=== PATIENT | male | born 1960 | race Caucasian/White ===

== ENCOUNTER 2018-09-04 07:28 | Observation (INO) | payer BC ==
[2018-09-04 07:33] VITALS: BMI 35.6
--- NOTE | 2018-09-04 07:38 | PDOC ---
History of Present Illness - General Chief Complaint: Pain Stated Complaint: epigatsric buring Time Seen by Provider: 09/04/18 07:31 History Source: Patient Exam Limitations: No Limitations - History of Present Illness Initial Comments: 57 yo M history HTN (well-controlled), recent treatment with prednisone and abx for pleurisy presents with epigastric burning in a band-like distribution, radiating to back. He had it all night, kept him awake from sleep. Denies SOB, leg swelling. States that his abdomen feels distended, bloated. No prior similar symptoms. Finished the steroids about 4 days ago, did not have any side effects while taking them. He states that his throat feels raspy, irritated. Past History - Past Medical History Allergies/Adverse Reactions: Allergies Allergy/AdvReac Type Severity Reaction Status Date / Time No Known Allergies Allergy Verified 09/04/18 07:30 Home Medications: Ambulatory Orders Budesonide/Formeterol Fumarate [SYMBICORT 160/4.5mcg -] 1 inh PO BID 09/04/18 Losartan/Hydrochlorothiazide [Losartan-Hctz 50-12.5 mg Tab] 1 each PO DAILY Montelukast Sodium [Singulair] 10 mg PO HS 09/04/18 Asthma: Yes COPD: No HTN: Yes Review of Systems - Review of Systems Able to Perform ROS?: Yes Comments:: GENERAL/CONSTITUTIONAL: No fever or chills. No weakness. HEAD, EYES, EARS, NOSE AND THROAT: No change in vision. No ear pain or discharge. No sore throat. CARDIOVASCULAR: No chest pain or shortness of breath. RESPIRATORY: No cough, wheezing, or hemoptysis. GASTROINTESTINAL: No nausea, vomiting, diarrhea or constipation. +Epigastric burning. GENITOURINARY: No dysuria, frequency, or change in urination. MUSCULOSKELETAL: No joint or muscle swelling or pain. No neck or back pain. SKIN: No rash. NEUROLOGIC: No headache, vertigo, loss of consciousness, or change in strength/ sensation. ENDOCRINE: No increased thirst. No abnormal weight change. HEMATOLOGIC/LYMPHATIC: No anemia, easy bleeding, or history of blood clots. ALLERGIC/IMMUNOLOGIC: No hives or skin allergy. *Physical Exam - Physical Exam Comments: GENERAL: Awake, alert, and fully oriented, in no acute distress. Obese. HEAD: No signs of trauma EYES: PERRLA, EOMI, sclera anicteric, conjunctiva clear ENT: Auricles normal inspection, hearing grossly normal, nares patent, oropharynx clear without exudates. Moist mucosa NECK: Normal ROM, supple, no lymphadenopathy, JVD, or masses LUNGS: Breath sounds equal, clear to auscultation bilaterally. No wheezes, and no crackles HEART: Regular rate and rhythm, normal S1 and S2, no murmurs, rubs or gallops ABDOMEN: Soft, minimal lower abd tenderness, normoactive bowel sounds. No guarding, no rebound. No masses EXTREMITIES: Normal range of motion, no edema. No clubbing or cyanosis. No cords, erythema, or tenderness NEUROLOGICAL: Cranial nerves II through XII grossly intact. Normal speech, normal gait. Motor and sensation intact SKIN: Warm, Dry, normal turgor, no rashes or lesions noted. Heart Score/ECG Review - History History: Slightly suspicious - Electrocardiogram EKG: Normal - Age Age: 45-65 - Risk Factors Risk Factors Heart Score: Yes Hx Hypertension, Yes Hx Obesity Based on the list above the patient has:: 1-2 risk factors - Troponin Troponin: </= normal limit - Score Heart Score - Total: 2 - ECG Impressions Comment:: EKG read 07:36- NSR 82 bpm, no acute ST/T changes ED Treatment Course - LABORATORY CBC & Chemistry Diagram: 09/04/18 08:00 09/04/18 08:00 - RADIOLOGY Chest X-Ray Result: No Infiltrates Medical Decision Making - Medical Decision Making 09/04/18 07:38 DDx includes ACS, pancreatitis, PUD, pna, PE. Will obtain CXR to r/o any thoracic etiology in light of recent treatment for pleurisy. ACS considered unlikely, as the presentation is very atypical, however, will obtain cardiac enzymes. PUD is definitely possible in light of recent steroid use. This would explain the burning and bloating. Pancreatitis is less likely, but will obtain lipase to r/o. PE unlikely given the clinical presentation- very atypical. No respiratory symptoms, no recent leg swelling. There is no rash and the burning is B/L, so shingles is unlikely. If workup is all negative, will consider CT a/ p. 09/04/18 07:56 EKG reviewed with patient, no acute findings. Upon further history, he states he has been on prednisone twice recently, raising concern for PUD. Await labs, then will determine whether to obtain CT or d/w his GI. 09/04/18 08:49 Slight improvement with pepcid. Will give a trial of protonix. 09/04/18 09:54 Improved significantly with protonix. Contacted Dr. Aguila, who will attempt to scope today. Awaiting update. Will send coags and T&S. Patient remains NPO. 09/04/18 10:39 Accepted to hospitalist service on obs, Dr. Ramirez. *DC/Admit/Observation/Transfer Diagnosis at time of Disposition: Epigastric pain - Discharge Dispostion Condition at time of disposition: Stable Decision to Admit order: Yes - Referrals - Patient Instructions - Post Discharge Activity
[2018-09-04] MEDS ORDERED: SODIUM CHLORIDE 1,000 ML IV STA (07:50)
[2018-09-04] MEDS ORDERED: FAMOTIDINE 20 MG/50 ML IVPB 20 MG/50 ML MG IVPB ONE (08:15)
[2018-09-04 08:34] LABS: BASO % 0.7 % (0-2.0)
[2018-09-04 08:38] LABS: ALBUMIN 4.3 g/dl (3.4-5.0); CALCIUM 9.4 mg/dl (8.5-10); CREATININE 1.1 mg/dl (0.55-1.3); POTASSIUM 3.8 mmol/L (3.5-5.1); TOT PROT 6.9 g/dl (6.4-8.2)
[2018-09-04 08:41] LABS: HEMATOCRIT 45.8 % (35.4-49); HEMOGLOBIN 15.8 GM/dl (11.7-16.9); LYMPH % 24.7 % (8-40); MCH 30.3 pg (25.7-33.7); MCHC 34.5 g/dl (32.0-35.9); MEAN PLT VOLUME 10.4 fl (7.5-11.1); MONO % 6.5 % (3.8-10.2); NEUT % 63.1 % (42.8-82.8); PLATELET COUNT 190 K/MM3 (134-434); RDW 11.9 % (11.9-15.9)
[2018-09-04] MEDS ORDERED: PANTOPRAZOLE SODIUM 40 MG VIAL IVPUSH ONE (08:48)
[2018-09-04] MEDS ORDERED: PANTOPRAZOLE SODIUM 40 MG VIAL ONE (08:49)
[2018-09-04 10:15] LABS: INR 1.1 (0.82-1.09); PROTHROMBIN TIME (PATIENT) 12.3 SEC (10.2-13.0)
--- NOTE | 2018-09-04 10:44 | HP ---
CHIEF COMPLAINT: Epigastric pain PCP: Dr. Ki Sellers HISTORY OF PRESENT ILLNESS: 57 year-old male with a PMH significant for HTN, moderate persistent asthma. allergic rhinitis, and WHIT (home CPAP). In mid-June (8 weeks ago) patient developed seasonal allergy symptoms which is his usual. On 07/21/18 he went to see his aquatic centre manager Dr. Tucker with cough, wheezing, SOB, and purulent sputum. He was diagnosed with an acute asthma exacerbation and was prescribed azithro x 5 days, prednisone taper, and told to continue Symbicort and Singulair. Two weeks ago, in early August, patient was seen by aquatic centre manager Dr. Fowler for persistent wheezing, coughing, and purulent sputum. He was put on a course of Ceftin and a short course of prednisone and his symptoms improved. Four days ago patient began experiencing a burning sensation in his abdomen. He describes it as band-like, going around the upper abdomen to the back. It is worse with deep inspiration and with lying down. Nothing makes it better. The burning sensation became much worse last night and he got little sleep. He propped himself up with pillows but has "discomfort" in his back. Patient denies chest pain, palpitations, JACOBS, lower extremity edema. He denies fever, sweats, chills. He had one episode of loose stools yesterday, brown color. No nausea or vomiting. Denies blood in urine or stool. Does not take ASA or NSAIDS on a regular basis. ER course was notable for: (1) Troponin neg x 1 (2) CXR: unremarkable (3) NS x 1L, protonix x 1 Recent Travel: [facility] in March PAST MEDICAL HISTORY: Hypertension Moderate persistent bronchial asthma Allergic rhinitis seasonal WHIT (home CPAP) PAST SURGICAL HISTORY: Myringotomies/tonsillectomy - as child Social History: Smoking: never Alcohol: social Drugs: no Family History: Mother 90 ovarian cancer; father 93 pancreatic cancer ; 1 brother, 1 sister both a&w Allergies No Known Allergies Allergy (Verified 09/04/18 07:30) HOME MEDICATIONS: Home Medications Medication Instructions Recorded Budesonide/Formeterol Fumarate 1 inh PO BID 09/04/18 [SYMBICORT 160/4.5mcg -] Losartan/Hydrochlorothiazide 1 each PO DAILY 09/04/18 [Losartan-Hctz 50-12.5 mg Tab] Montelukast Sodium [Singulair] 10 mg PO HS 09/04/18 REVIEW OF SYSTEMS CONSTITUTIONAL: Absent: fever, chills, diaphoresis, generalized weakness, malaise, loss of appetite, weight change HEENT: Absent: rhinorrhea, nasal congestion, throat pain, throat swelling, difficulty swallowing, mouth swelling, ear pain, eye pain, visual changes CARDIOVASCULAR: Absent: chest pain, syncope, palpitations, irregular heart rate, lightheadedness , peripheral edema RESPIRATORY: +cough, wheezing Absent: shortness of breath, dyspnea with exertion, orthopnea, stridor, hemoptysis GASTROINTESTINAL: +abdominal pain, bloating Absent: nausea, vomiting, diarrhea, constipation, melena, hematochezia GENITOURINARY: Absent: dysuria, frequency, urgency, hesitancy, hematuria, flank pain, genital pain MUSCULOSKELETAL: Absent: myalgia, arthralgia, joint swelling, back pain, neck pain SKIN: Absent: rash, itching, pallor HEMATOLOGIC/IMMUNOLOGIC: Absent: easy bleeding, easy bruising, lymphadenopathy, frequent infections ENDOCRINE: Absent: unexplained weight gain, unexplained weight loss, heat intolerance, cold intolerance NEUROLOGIC: Absent: headache, focal weakness or paresthesias, dizziness, unsteady gait, seizure, mental status changes, bladder or bowel incontinence PSYCHIATRIC: Absent: anxiety, depression, suicidal or homicidal ideation, hallucinations. PHYSICAL EXAMINATION Vital Signs - 24 hr 09/04/18 09/04/18 09/04/18 07:29 10:04 10:07 Temperature 97.8 F 98.4 F Pulse Rate 83 Pulse Rate [ 70 Apical] Respiratory 18 18 Rate Blood Pressure 154/93 Blood Pressure 137/83 [Arm] O2 Sat by Pulse 98 97 Oximetry (%) GENERAL: Awake, alert, and fully oriented. Anxious. HEAD: Normal with no signs of trauma. LUNGS: Poor air movement. Mild inspiratory and expiratory wheezing. No accessory muscle use. HEART: Regular rate and rhythm, normal S1 and S2 ABDOMEN: Soft, nontender, not distended, normoactive bowel sounds, no guarding, no rebound tenderness MUSCULOSKELETAL: Normal range of motion at all joints. No bony deformities or tenderness. No CVA tenderness. UPPER EXTREMITIES: 2+ pulses, warm, well-perfused. No cyanosis. No clubbing. No peripheral edema. LOWER EXTREMITIES: 2+ pulses, warm, well-perfused. No calf tenderness. No peripheral edema. Mild bilateral venous stasis changes. NEUROLOGICAL: Cranial nerves II-XII intact. Normal speech. PSYCHIATRIC: Cooperative. Good eye contact. Appropriate mood and affect. SKIN: Warm, dry, normal turgor Laboratory Results - last 24 hr 09/04/18 09/04/18 09/04/18 08:00 08:00 08:00 WBC 7.0 RBC 5.20 Hgb 15.8 Hct 45.8 MCV 88.0 MCH 30.3 MCHC 34.5 RDW 11.9 Plt Count 190 MPV 10.4 Absolute Neuts (auto) 4.4 Neutrophils % 63.1 Lymphocytes % 24.7 Monocytes % 6.5 Eosinophils % 5.0 H Basophils % 0.7 PT with INR INR Sodium 137 Potassium 3.8 Chloride 103 Carbon Dioxide 24 Anion Gap 10 BUN 23 H Creatinine 1.1 Est GFR (CKD-EPI)AfAm 84.71 Est GFR (CKD-EPI)NonAf 73.09 Random Glucose 113 H Calcium 9.4 Total Bilirubin 1.0 AST 29 ALT 57 Alkaline Phosphatase 46 Creatine Kinase 76 Troponin I < 0.03 Total Protein 6.9 Albumin 4.3 Lipase 254 09/04/18 09:59 WBC RBC Hgb Hct MCV MCH MCHC RDW Plt Count MPV Absolute Neuts (auto) Neutrophils % Lymphocytes % Monocytes % Eosinophils % Basophils % PT with INR 12.3 INR 1.10 Sodium Potassium Chloride Carbon Dioxide Anion Gap BUN Creatinine Est GFR (CKD-EPI)AfAm Est GFR (CKD-EPI)NonAf Random Glucose Calcium Total Bilirubin AST ALT Alkaline Phosphatase Creatine Kinase Troponin I Total Protein Albumin Lipase ASSESSMENT/PLAN 57 year-old male with a PMH significant for HTN, moderate persistent asthma. allergic rhinitis, and WHIT (home CPAP). Placed on observation for abdominal pain. Epigastric pain --ECG reviewed, no sign of acute ischemic event --troponin neg x 2, one pending --CXR unremarkable --CTA chest: negative for PE; no acute findings --Echo: small pericardial effusion --seen and evaluated by Dr. Polk: considered pericarditis but no ECG changes and esr and crp both wnl; do not start ASA or other NSAID --repeat ECG at 11:00pm and in am --telemetry monitoring Gastritis Duodenitis --EGD done today by Dr. Aguila: mild gastritis, duodenitis --protonix PO BID --ranitidine PO BID for shorter-acting relief Hypertension --BP is well-controlled, baseline 130s/80s --continue HCTZ/Losartan Asthma exacerbation --mild wheezing --duonebs --continue home symbicort, singulair WHIT --CPAP at night, will use machine from home FEN Fluids: NS @ 50mL/hr Electrolytes: replete as indicated Nutrition: low sodium DVT prophylaxis: oob, ambulation, expected discharge in am. Full code. Visit type - Emergency Visit Emergency Visit: Yes ED Registration Date: 09/04/18 Care time: The patient presented to the Emergency Department on the above date and was hospitalized for further evaluation of their emergent condition. - New Patient This patient is new to me today: Yes Date on this admission: 09/04/18 - Critical Care Critical Care patient: No
[2018-09-04] MEDS ORDERED: SODIUM CHLORIDE 1,000 ML IV SCH ×2 (11:00→18:06)
[2018-09-04] MEDS ORDERED: SODIUM CHLORIDE 500 ML IV STA (11:00)
[2018-09-04] MEDS ORDERED: LIDOCAINE HCL/PF 2% SDV 5ML VIAL ONE (11:26)
[2018-09-04] MEDS ORDERED: PROPOFOL 20 ML ONE ×2 (11:26)
[2018-09-04] MEDS ORDERED: EPINEPHrine 1:10,000 (P-F SYR) 1 MG/10 ML DISP.SYRIN ONE (11:26)
[2018-09-04] MEDS ORDERED: ONDANSETRON 4 MG/2 ML VIAL ONE (11:57)
[2018-09-04] MEDS ORDERED: ALBUTEROL SO4 2.5/IPRATROPIUM 0.5 INH SOL 3 ML VIAL.NEB. NEB PRN (14:09)
[2018-09-04 15:19] LABS: CHOLESTEROL 160 mg/dl (50-200); HDL CHOLESTEROL 41 mg/dl (40-60); LDL CHOLESTEROL (ONLY DFH) 107 mg/dl (5-100); TRIGLYCERIDES 62 mg/dl (0-150)
--- NOTE | 2018-09-04 15:56 | CON.CARD ---
Consult Consult Specialty:: Cardiology Referred by:: Nile Adams Reason for Consultation:: Epigastric and chest pain - History of Present Illness Chief Complaint: Epigastric pain radiating back History of Present Illness: 57 M with HTN, asthma and WHIT presents for evaluation of one day of epigastric and abdominal pain radiating to back along with epigastric burning worse when laying down, improved with sitting up. Denies chest pain, SOB, palpitations, PND or orthopnea. No cough, fevers or chills. HPI began several weeks ago when he began having dry cough and mild pleurisy symptoms. Was seen by Pulmonary and given and antibiotic and short course of steroids. This was preceded by a sore throat for which he saw ENT, had a scope which was unremarkable. No recent prolonged air or car travel. He is sedentary; denies exertional CP, SOB, dizziness. Had EGD done earlier today showing nonspecific gastritis and inflammation. - History Source History Provided By: Patient Limitations to Obtaining History: No Limitations - Past Medical History [employer]: No: Alzheimer's, CVA, Dementia, Migraine, Multiple Sclerosis, Peripheral Neuropathy, Parkinson's, Seizure, Syncope, TIA, Vertigo, Other Cardio/Vascular: Yes: HTN Pulmonary: Yes: Asthma, Sleep Apnea Gastrointestinal: No: Ascites, Cancer, Constipation, Crohn's Disease, Diverticulitis, Diverticulosis, Esophageal Varices, Gastritis, GERD, GI Bleed, Hemorrhoids, Hiatal Hernia, Inflamatory Bowel Disease, Irritable Bowel Disease, Pancreatitis, Peptic Ulcer Disease, Ulcerative Colitis, Other Hepatobiliary: No: Cirrhosis, Cholelithiasis, Cholecystitis, Choledocholithiasis , Hepatitis A, Hepatitis B, Hepatitis C, Other Renal/: No: Renal Failure, Renal Inusuff, BPH, Cancer, Hematuria, Hemodialysis , Neurogenic Bladder, Renal Calculi, UTI, Other Heme/Onc: No: Anemia, B12 Deficiency, Bleeding Disorder, Cancer, Current Chemotherapy, Current Radiation Therapy, Hemochromatosis, Hypercoaguable State, Myeloproliferative Synd, Sickle Cell Disease, Sickle Cell Trait, Thrombocytopenia, Other Infectious Disease: No: AIDS, C-Diff, Herpes Zoster, HIV, MRSA, STD's, Tuberculosis, VREF, Other Psych: No: Addictions, Anxiety, Bipolar, Depression, Panic, Psychosis, Schizophrenia, Other Musculoskeletal: No: Bursitis, Chronic low back pain, Hemiparesis, Hemiplegia, Osteoarthritis, Paraplegia, Other Rheumatology: No: Fibromyalgia, Gout, Lupus, Rheumatoid Arthritis, Sarcoidosis, Vasculitis, Other ENT: Yes: Allergic Rhinitis Endocrine: No: Michael's Disease, Kel's Disease, Diabetes Insipidus, Diabetes Mellitus, Hyperparathyroidism, Hyperthyroidism, Hypothyroidism, Osteopenia, SIADH, Other Dermatology: No: Basal Cell, Cellulitis, Eczema, Melanoma, Psoriasis, Squamous Cell, Other - Alcohol/Substance Use Hx Alcohol Use: No (socially) - Smoking History Smoking history: Never smoked - Social History Usual Living Arrangement: With Spouse History of Recent Travel: No Home Medications - Allergies Allergies/Adverse Reactions: Allergies Allergy/AdvReac Type Severity Reaction Status Date / Time No Known Allergies Allergy Verified 09/04/18 07:30 - Home Medications Home Medications: Ambulatory Orders Budesonide/Formeterol Fumarate [SYMBICORT 160/4.5mcg -] 1 inh PO BID 09/04/18 Losartan/Hydrochlorothiazide [Losartan-Hctz 50-12.5 mg Tab] 1 each PO DAILY Montelukast Sodium [Singulair] 10 mg PO HS 09/04/18 Family Disease History - Family Disease History Family Disease History: CA: Father Review of Systems Findings/Remarks: see HPI - Review of Systems Constitutional: reports: No Symptoms Eyes: reports: No Symptoms HENT: reports: No Symptoms Neck: reports: No Symptoms Cardiovascular: reports: No Symptoms Respiratory: reports: No Symptoms Gastrointestinal: reports: Abdominal Pain, Other (abdominal and epigastric pain radiating to back, worse with laying flat.) Breasts: denies: No Symptoms Reported, See HPI, Breast Implants, Discharge from Nipple, Lumps, Pain, Skin Changes, Other Musculoskeletal: denies: No Symptoms, Back Pain, Crepitus, Decreased ROM, Extremity Pain, Joint Pain, Joint Swelling, Muscle Pain, Muscle Cramps, Muscle Weakness, Other Integumentary: denies: No Symptoms, Blister, Bruising, Change in Color, Eczema, Erythema, Incision, Lesions, Lump, Pallor, Pruritis, Rash, Wound, Other Neurological: denies: No Symptoms, Change in LOC, Change in Speech, Confusion, Dizziness, Headache, Incoordination, Numbness, Parasthesia, Pre-Existing Deficit , Seizure, Syncope, Tremors, Unsteady Gait, Weakness, Other Endocrine: denies: No Symptoms, Excessive Sweating, Flushing, Increased Hunger, Increased Thirst, Intolerance to Cold, Intolerance to Heat, Unexplained Weight Gain, Unexplained Weight Loss, Other Hematology/Lymphatic: denies: No Symptoms, Easily Bruised, Excessive Bleeding, Swollen Glands, Other Psychiatric: denies: No Symptoms, Altered Sleep Pattern, Anxiety, Depression, Hallucinations, Panic, Paranoia, Suicidal, Other - Risk Factors Known Risk Factors: Yes: Hypertension Vital Signs: Vital Signs Temperature 98.7 F 09/04/18 13:00 Pulse Rate 66 09/04/18 13:00 Respiratory Rate 13 09/04/18 13:00 Blood Pressure 108/61 09/04/18 13:00 O2 Sat by Pulse Oximetry (%) 97 09/04/18 12:40 Constitutional: Yes: No Distress, Calm Eyes: Yes: Conjunctiva Clear HENT: Yes: Atraumatic, Normocephalic Neck: Yes: Supple Respiratory: Yes: CTA Bilaterally (no rales or wheezing.), Other (diminished breath sounds) Gastrointestinal: Yes: Normal Bowel Sounds, Soft (no rebound, no guarding. No RUQ tenderness. Negative Bowers's sign,), Abdomen, Obese Cardiovascular: Yes: Regular Rate and Rhythm JVD: No Carotid Bruit: No PMI: Non-Displaced Heart Sounds: Yes: S1, S2 (RRR, no M/R/G.) Edema: No Peripheral Pulses WNL: Yes Peripheral Pulses: 2+ Left Carotid, 2+ Right Carotid, 2+ Left Doralis Pedis, 2+ Right Dorsalis Pedis Neurological: Yes: WNL ...Motor Strength: WNL Psychiatric: Yes: WNL - Other Data Labs, Other Data: CBC, BMP 09/04/18 08:00 09/04/18 08:00 INR, PTT INR 1.10 (0.82-1.09) 09/04/18 09:59 Troponin, BNP 09/04/18 08:00 Troponin I < 0.03 Troponin, BNP 09/04/18 08:00 Troponin I < 0.03 Laboratory Tests 09/04/18 09/04/18 09/04/18 07:40 08:00 08:00 Lactic Acid Calcium 9.4 Total Bilirubin 1.0 AST 29 ALT 57 Alkaline Phosphatase 46 Creatine Kinase 76 Troponin I < 0.03 Total Protein 6.9 Albumin 4.3 Triglycerides 62 Cholesterol 160 Total LDL Cholesterol 107 H HDL Cholesterol 41 Lipase 254 TSH 09/04/18 09/04/18 13:35 13:35 Lactic Acid 0.8 Calcium Total Bilirubin AST ALT Alkaline Phosphatase Creatine Kinase Troponin I Total Protein Albumin Triglycerides Cholesterol Total LDL Cholesterol HDL Cholesterol Lipase TSH 1.41 D NSR 82bpm/ No acute ST changes Echo: Pending Imaging - Results Chest X-ray: Image Reviewed (No infiltrates or effusions.) Cat Scan: Pending (CT A/P with PO and IV contrast) EKG: Image Reviewed Assessment/Plan IMP: 1. Epigastric pain with posterior radiation, positional worsening. 2. Gastritis 3. Chronic well controlled HTN 4. Chronic asthma 5. WHIT, treated Etiology of current symptoms not entirely clear at moment. Differential includes : Aortic pathology/ right sided colitis/ abdominal mass/ other inflammatory post viral syndromes such as pleurisy or pericarditis (less likely as ECG not suggestive). Doubt coronary ischemia as ECG normal and symptoms very atypical. Normal Lipase makes acute pancreatitis or biliary colic unlikely. Nl LFTs, relatively benign abdomen makes acute cholecystitis also unlikely. REC: 1. F/u CT A/P 2. Continue telemetry; serial cardiac enzymes and ECGs. 3. Continue home BP meds. 4. PPI for reflux/gastritis. 5. Echo today to r/o pericardial disease, assess EF. 6. Further cardiac work pending above.
--- NOTE | 2018-09-04 16:50 | CON.PULM ---
Consult Consult Specialty:: PULMONARY Referred by:: TANIA Reason for Consultation:: ABD PAIN - History of Present Illness Chief Complaint: ABD PAIN RADIATING TO BACK History of Present Illness: 57 yo M history HTN (well-controlled), recent treatment with prednisone and abx for asthmatic bronchitis presents with epigastric burning in a band-like distribution, radiating to back. He had it all night, kept him awake from sleep. Denies SOB, leg swelling. States that his abdomen feels distended, bloated. No prior similar symptoms. Finished the steroids about 4 days ago, did not have any side effects while taking them. He states that his throat feels raspy, irritated. - History Source History Provided By: Patient, Family Member, Medical Record Limitations to Obtaining History: No Limitations - Past Medical History [employer]: No: Alzheimer's, CVA, Dementia, Migraine, Multiple Sclerosis, Peripheral Neuropathy, Parkinson's, Seizure, Syncope, TIA, Vertigo, Other Cardio/Vascular: Yes: HTN. No: AFIB Pulmonary: Yes: Asthma, Sleep Apnea Gastrointestinal: No: Ascites, Cancer, Constipation, Crohn's Disease, Diverticulitis, Diverticulosis, Esophageal Varices, Gastritis, GERD, GI Bleed, Hemorrhoids, Hiatal Hernia, Inflamatory Bowel Disease, Irritable Bowel Disease, Pancreatitis, Peptic Ulcer Disease, Ulcerative Colitis, Other Hepatobiliary: No: Cirrhosis, Cholelithiasis, Cholecystitis, Choledocholithiasis , Hepatitis A, Hepatitis B, Hepatitis C, Other Renal/: No: Renal Failure, Renal Inusuff, BPH, Cancer, Hematuria, Hemodialysis , Neurogenic Bladder, Renal Calculi, UTI, Other Heme/Onc: No: Anemia Infectious Disease: No: AIDS, C-Diff, Herpes Zoster, HIV, MRSA, STD's, Tuberculosis, VREF, Other Psych: No: Addictions, Anxiety, Bipolar, Depression, Panic, Psychosis, Schizophrenia, Other Musculoskeletal: No: Bursitis, Chronic low back pain, Hemiparesis, Hemiplegia, Osteoarthritis, Paraplegia, Other Rheumatology: No: Fibromyalgia, Gout, Lupus, Rheumatoid Arthritis, Sarcoidosis, Vasculitis, Other ENT: Yes: Allergic Rhinitis Endocrine: No: Michael's Disease, Otoe's Disease, Diabetes Insipidus, Diabetes Mellitus, Hyperparathyroidism, Hyperthyroidism, Hypothyroidism, Osteopenia, SIADH, Other Dermatology: No: Basal Cell, Cellulitis, Eczema, Melanoma, Psoriasis, Squamous Cell, Other - Past Surgical History Past Surgical History: Yes: Tonsillectomy - Alcohol/Substance Use Hx Alcohol Use: No (social) History of Substance Use: reports: None - Smoking History Smoking history: Never smoked Have you smoked in the past 12 months: No - Social History Usual Living Arrangement: With Spouse ADL: Independent Place of : [facility] History of Recent Travel: No Home Medications - Allergies Allergies/Adverse Reactions: Allergies Allergy/AdvReac Type Severity Reaction Status Date / Time No Known Allergies Allergy Verified 09/04/18 07:30 - Home Medications Home Medications: Ambulatory Orders Budesonide/Formeterol Fumarate [SYMBICORT 160/4.5mcg -] 1 inh PO BID 09/04/18 Losartan/Hydrochlorothiazide [Losartan-Hctz 50-12.5 mg Tab] 1 each PO DAILY Montelukast Sodium [Singulair] 10 mg PO HS 09/04/18 Family Disease History - Family Disease History Family Disease History: [place]: Father Review of Systems - Review of Systems Constitutional: denies: Fever Eyes: denies: Blurred Vision HENT: denies: Hearing Loss Neck: denies: Decreased ROM Cardiovascular: denies: Chest Pain Respiratory: reports: Cough, Exercise Intolerance, Snoring, SOB, SOB on Exertion. denies: Hemoptysis, PND, Wheezing Gastrointestinal: reports: Abdominal Pain, Bloating. denies: Constipation, Diarrhea Genitourinary: denies: Discharge Breasts: reports: No Symptoms Reported Musculoskeletal: reports: No Symptoms Integumentary: reports: No Symptoms Neurological: reports: No Symptoms Physical Exam Vital Sings: Vital Signs Temperature 98.7 F 09/04/18 13:00 Pulse Rate 66 09/04/18 13:00 Respiratory Rate 13 09/04/18 13:00 Blood Pressure 108/61 09/04/18 13:00 O2 Sat by Pulse Oximetry (%) 97 09/04/18 12:40 Constitutional: Yes: Well Nourished Eyes: Yes: Conjunctiva Clear HENT: Yes: Atraumatic Neck: Yes: Supple Cardiovascular: Yes: Regular Rate and Rhythm Respiratory: Yes: CTA Bilaterally Gastrointestinal: Yes: Normal Bowel Sounds, Abdomen, Obese Renal/: Yes: WNL Breast(s): Yes: WNL Musculoskeletal: Yes: WNL Extremities: Yes: WNL Labs: CBC, BMP 09/04/18 08:00 09/04/18 08:00 Imaging - Results Chest X-ray: Report Reviewed, Image Reviewed Cat Scan: Report Reviewed, Image Reviewed EKG: Report Reviewed, Image Reviewed Problem List - Problems (1) Epigastric pain Code(s): R10.13 - EPIGASTRIC PAIN (2) Asthmatic bronchitis Code(s): J45.909 - UNSPECIFIED ASTHMA, UNCOMPLICATED (3) Asthmatic bronchitis Code(s): J45.909 - UNSPECIFIED ASTHMA, UNCOMPLICATED (4) HTN (hypertension) Code(s): I10 - ESSENTIAL (PRIMARY) HYPERTENSION Assessment/Plan ABD PAIN ETIOLOGY TO BE DETERMINED HTN CONTROLLED M. OBESITY OSAS CTA CHEST ABD PELVIS REVIEWED WITH RADIOLOGY NORMAL TROP X1 IS NEGATIVE EKG IS NORMAL EGD SHOWED MILD GASTRITIS NO ULCER WILL CHECK ECHO/TROP X2 ESR/CRP Jean WALKER MD
[2018-09-04] MEDS ORDERED: SUCRALFATE 1 GM/10 ML UNIT DOSE CUPS PO ONE (17:51)
[2018-09-04] MEDS ORDERED: RANITIDINE HCL 150 MG TABLET (FP) PO ONE (20:03)
[2018-09-04] MEDS: BUDESONIDE/FORMETEROL FUMARATE 160/4.5 mcg INHALER IH SCH (21:58)
[2018-09-04] MEDS: PANTOPRAZOLE 40 MG TABLET (FP) PO SCH (21:58)
[2018-09-04] MEDS: SUCRALFATE 1 GM/10 ML UNIT DOSE CUPS PO SCH (21:58)
[2018-09-04] MEDS ORDERED: ASPIRIN 325 MG TABLET PO SCH (22:00)
[2018-09-04] MEDS ORDERED: PANTOPRAZOLE SODIUM 40 MG VIAL IVPUSH SCH (22:00)
[2018-09-04] MEDS ORDERED: MONTELUKAST NA 10 MG TABLET PO SCH (22:00)
[2018-09-05 06:38] VITALS: BP 123/84; PULSE 67; TEMP 98.1
--- NOTE | 2018-09-05 08:10 | PN ---
Progress Note, Physician Chief Complaint: Cardiac enzymes negative TELE: NSR ESR and CRP normal- points away from active pericarditis. History of Present Illness: Ate dinner and had reflux symptoms, burning and water brash sensation- said it was very similar to what he was feeling and now is "afraid to eat" - Current Medication List Current Medications: Active Medications Albuterol/Ipratropium (Duoneb -) 1 amp NEB Q4H PRN PRN Reason: SHORTNESS OF BREATH Last Admin: 09/04/18 13:00 Dose: 1 amp Budesonide/Formoterol Fumarate (Symbicort 160/4.5mcg -) 1 puff IH BID [facility] Last Admin: 09/04/18 21:58 Dose: 1 puff HCTZ/Losartan Potassium (Hyzaar -) 1 tab PO DAILY [facility] Sodium Chloride (Normal Saline -) 1,000 mls @ 50 mls/hr IV ASDIR [facility] Last Admin: 09/04/18 19:30 Dose: 50 mls/hr Montelukast Sodium (Singulair -) 10 mg PO HS [facility] Last Admin: 09/04/18 21:58 Dose: 10 mg Pantoprazole Sodium (Protonix -) 40 mg PO BID [facility] Last Admin: 09/04/18 21:58 Dose: 40 mg Sucralfate (Carafate Oral Suspension -) 1 gm PO BID [facility] Last Admin: 09/04/18 21:58 Dose: 1 gm - Objective Vital Signs: Vital Signs Temperature 98.1 F 09/05/18 06:00 Pulse Rate 67 09/05/18 06:00 Respiratory Rate 18 09/05/18 07:59 Blood Pressure 123/84 09/05/18 06:00 O2 Sat by Pulse Oximetry (%) 96 09/05/18 07:59 Constitutional: Yes: No Distress, Calm Eyes: Yes: Conjunctiva Clear, EOM Intact HENT: Yes: Normocephalic Neck: Yes: Trachea Midline Cardiovascular: Yes: Regular Rate and Rhythm Respiratory: Yes: CTA Bilaterally Gastrointestinal: Yes: Soft Edema: No Neurological: Yes: Alert, Oriented Labs: CBC, BMP 09/04/18 08:00 09/04/18 08:00 INR, PTT INR 1.10 (0.82-1.09) 09/04/18 09:59 Laboratory Tests 09/04/18 09/04/1809/04/19 08:00 16:00 23:00 Troponin I < 0.03 < 0.03 < 0.03 - ....Imaging EKG: Image Reviewed (TELE: NSR) Assessment/Plan IMP: 1. Epigastric pain, likely secondary to GERD/gastritis and duodenitis 2. Chronic well controlled HTN 3. Chronic asthma 4. WHIT, treated 5. Possible trivial pericardial effusion (incidental) vs prominent fat pad Now symptoms more clearly GI in nature: worse with eating, improved with sucralfate. ESR /CRP/ECG normal - make active pericarditis unlikely TnI negative x 3, normal LVEF on Echo. REC: 1. Continue PPI BID as per GI 2. Hold NSAIDS/ASA as this does not seem to be pericarditits. 3. Continue usual BP meds. 4. Outpatient f/u for ETT for further risk stratification. 5. D/C tele
[2018-09-05] MEDS: PANTOPRAZOLE 40 MG TABLET (FP) PO SCH (09:14)
[2018-09-05] MEDS: SUCRALFATE 1 GM/10 ML UNIT DOSE CUPS PO SCH (09:14)
[2018-09-05] MEDS: BUDESONIDE/FORMETEROL FUMARATE 160/4.5 mcg INHALER IH SCH (09:30)
--- NOTE | 2018-09-05 09:32 | DS ---
Physical Exam: SUBJECTIVE: Patient seen and examined, denies pain, EKG done, NSR. ready for DC this morning. OBJECTIVE: Vital Signs Period Temp Pulse Resp BP Sys/Mae Pulse Ox Last 24 Hr 97.8 F-98.8 F 62-80 12-18 107-137/60-84 95-100 PHYSICAL EXAM GENERAL: The patient is awake, alert, and fully oriented, in no acute distress. HEAD: Normal with no signs of trauma. EYES: PERRL, extraocular movements intact, sclera anicteric, conjunctiva clear. ENT: Ears normal, nares patent, oropharynx clear without exudates, moist mucous membranes. NECK: Trachea midline, full range of motion, supple. LUNGS: Breath sounds equal, clear to auscultation bilaterally, no wheezes, no crackles, no accessory muscle use. HEART: Regular rate and rhythm, S1, S2 without murmur, rub or gallop. ABDOMEN: Soft, nontender, nondistended, normoactive bowel sounds, no guarding, no rebound, no hepatosplenomegaly, no masses. EXTREMITIES: 2+ pulses, warm, well-perfused, no edema. NEUROLOGICAL: Cranial nerves II through XII grossly intact. Normal speech, gait not observed. PSYCH: Normal mood, normal affect. SKIN: Warm, dry, normal turgor, no rashes or lesions noted. LABS Laboratory Results - last 24 hr 09/04/18 09/04/18 09/04/18 07:40 07:40 08:00 ESR 2 PT with INR INR Hemoglobin A1c % Lactic Acid Creatine Kinase Troponin I C-Reactive Protein Triglycerides 62 Cholesterol 160 Total LDL Cholesterol 107 H HDL Cholesterol 41 Lipase 254 TSH Blood Type Antibody Screen 09/04/18 09/04/18 09/04/18 09:50 09:55 09:59 ESR PT with INR 12.3 INR 1.10 Hemoglobin A1c % Lactic Acid Creatine Kinase Troponin I C-Reactive Protein Triglycerides Cholesterol Total LDL Cholesterol HDL Cholesterol Lipase TSH Blood Type O POSITIVE O POSITIVE Antibody Screen Negative 09/04/18 09/04/18 09/04/18 13:35 13:35 15:32 ESR PT with INR INR Hemoglobin A1c % 5.8 Lactic Acid 0.8 Creatine Kinase Troponin I C-Reactive Protein Triglycerides Cholesterol Total LDL Cholesterol HDL Cholesterol Lipase TSH 1.41 D Blood Type Antibody Screen 09/04/18 09/04/18 09/04/18 16:00 16:00 16:00 ESR PT with INR INR Hemoglobin A1c % Lactic Acid Creatine Kinase 70 Troponin I < 0.03 C-Reactive Protein < 0.3 Triglycerides Cholesterol Total LDL Cholesterol HDL Cholesterol Lipase TSH Blood Type Antibody Screen 09/04/18 23:00 ESR PT with INR INR Hemoglobin A1c % Lactic Acid Creatine Kinase Troponin I < 0.03 C-Reactive Protein Triglycerides Cholesterol Total LDL Cholesterol HDL Cholesterol Lipase TSH Blood Type Antibody Screen HOSPITAL COURSE: Date of Admission:09/04/18 Date of Discharge: 09/05/18 57 year-old male with a PMH significant for HTN, moderate persistent asthma. allergic rhinitis, and WHIT (home CPAP). Placed on observation for abdominal pain. pt s/p EGD yesterday which showed mild gastritis, duodenitis, started on Protonix BID and carafate, with great relief of symptoms. pt seen by Cardio, no acute ischemic event. trops eg, EKG this AM, NSR. Epigastric pain --ECG reviewed, no sign of acute ischemic event --troponin neg x 3 neg --CXR unremarkable --CTA chest: negative for PE; no acute findings --Echo: small pericardial effusion --seen and evaluated by Dr. Polk: considered pericarditis but no ECG changes and esr and crp both wnl; do not start ASA or other NSAID --follow up with cardio as outpt Gastritis Duodenitis --EGD done today by Dr. Aguila: mild gastritis, duodenitis --protonix PO BID- DC home with Protonix BID and Carafate (x14 days) Hypertension --BP is well-controlled, baseline 130s/80s --continue HCTZ/Losartan Asthma exacerbation --mild wheezing --duonebs --continue home symbicort, singulair WHIT --CPAP at night, will use machine from home Minutes to complete discharge: 30 Discharge Summary Reason For Visit: epigatsric buring Current Active Problems Asthmatic bronchitis (Acute) Asthmatic bronchitis (Acute) Epigastric pain (Acute) HTN (hypertension) (Acute) Condition: Stable - Instructions Diet, Activity, Other Instructions: Follow up with Cardiology and GI Disposition: HOME - Home Medications Comprehensive Discharge Medication List: Ambulatory Orders Budesonide/Formeterol Fumarate [SYMBICORT 160/4.5mcg -] 1 inh PO BID 09/04/18 Losartan/Hydrochlorothiazide [Losartan-Hctz 50-12.5 mg Tab] 1 each PO DAILY Montelukast Sodium [Singulair] 10 mg PO HS 09/04/18 Pantoprazole Sodium [Protonix -] 40 mg PO BID 30 Days #60 tablet.ec 09/05/18 Sucralfate Oral Suspension [Carafate Oral Suspension -] 1 gm PO BID 14 Days # 300 ml 09/05/18 This patient is new to me today: Yes Date on this admission: 09/05/18 Emergency Visit: Yes ED Registration Date: 09/04/18 Care time: The patient presented to the Emergency Department on the above date and was hospitalized for further evaluation of their emergent condition. Critical Care patient: No - Discharge Referral Referred to [facility] Med P.C.: No
[2018-09-05] MEDS ORDERED: LOSARTAN 50MG/HCTZ 12.5MG 1 TAB (FP) PO SCH (10:00)
[2018-09-05] MEDS ORDERED: PANTOPRAZOLE 40 MG TABLET (FP) PO SCH (10:00)
[2018-09-05] MEDS ORDERED: RANITIDINE HCL 150 MG TABLET (FP) PO SCH (10:00)
--- NOTE | 2018-09-05 11:26 | ECHO ---
Name: GIOVANNI MELISSA Exam:Adult Echocardiogram Study Date: 09/04/2018 04:57 PM Age: 57 yrs Reason For Study: Chest pain Height: 74 in Weight: 287 lb BSA: 2.5 m2 MMode/2D Measurements & Calculations IVSd: 1.1 cm Ao root diam: 2.9 cm LVIDd: 4.2 cm LA dimension: 3.4 cm LVIDs: 2.9 cm LVPWd: 0.99 cm EDV(Teich): 80.6 ml LVOT diam: 2.0 cm ESV(Teich): 32.2 ml Doppler Measurements & Calculations MV E max maddy: 76.8 cm/sec MV A max maddy: 61.8 cm/sec MV E/A: 1.2 Left Ventricle The left ventricular size, thickness and function are normal. The transmitral spectral Doppler flow p attern is normal for age. Right Ventricle A moderator band is seen in the right ventricle. The right ventricle is normal in size and function. Atria Normal left and right atrial size and function. Mitral Valve The mitral valve is normal in structure and function. There is no mitral valve stenosis. There is mil d mitral regurgitation. Tricuspid Valve The tricuspid valve is normal in structure and function. There is mild tricuspid regurgitation. There was insufficient TR detected to calculate RV systolic pressure. Aortic Valve The aortic valve is trileaflet. No hemodynamically significant valvular aortic stenosis. No aortic regurgitation is present. Pulmonic Valve The pulmonic valve is not well seen, but is grossly normal. There is no pulmonic valvular stenosis. T here is no pulmonic valvular regurgitation. Great Vessels The aortic root is normal size. Pericardium/Pleura Prominent epicardial fat pad. Interpretation Summary The left ventricular size, thickness and function are normal The right ventricle is normal in size and function. There is mild mitral regurgitation. There is mild tricuspid regurgitation. The aortic root is normal size. Prominent epicardial fat pad. MD Gilmore *Felicitas 09/05/2018 11:25 AM
--- NOTE | 2018-09-05 12:21 | EKG ---
Test Reason : Blood Pressure : / mmHG Vent. Rate : 070 BPM Atrial Rate : 070 BPM P-R Int : 176 ms QRS Dur : 090 ms QT Int : 394 ms P-R-T Axes : 067 060 041 degrees QTc Int : 425 ms NORMAL SINUS RHYTHM NORMAL ECG WHEN COMPARED WITH ECG OF 04-SEP-2018 07:35, NO SIGNIFICANT CHANGE WAS FOUND Confirmed by JOSE ANTONIO HINOJOSA MD ([id number]) on 09/05/2018 12:21:04 PM Referred By: Clovis Ramirez Confirmed By:JOSE ANTONIO HINOJOSA MD
--- NOTE | 2018-09-05 12:21 | EKG ---
Test Reason : Blood Pressure : / mmHG Vent. Rate : 090 BPM Atrial Rate : 090 BPM P-R Int : 170 ms QRS Dur : 092 ms QT Int : 366 ms P-R-T Axes : 063 062 042 degrees QTc Int : 447 ms NORMAL SINUS RHYTHM NORMAL ECG WHEN COMPARED WITH ECG OF 04-SEP-2018 23:00, NO SIGNIFICANT CHANGE WAS FOUND Confirmed by JOSE ANTONIO HINOJOSA MD ([id number]) on 09/05/2018 12:20:59 PM Referred By: Clovis Ramirez Confirmed By:JOSE ANTONIO HINOJOSA MD
--- NOTE | 2018-09-05 12:22 | EKG ---
Test Reason : Blood Pressure : / mmHG Vent. Rate : 082 BPM Atrial Rate : 082 BPM P-R Int : 174 ms QRS Dur : 086 ms QT Int : 364 ms P-R-T Axes : 063 052 035 degrees QTc Int : 425 ms NORMAL SINUS RHYTHM NORMAL ECG NO PREVIOUS ECGS AVAILABLE Confirmed by JOSE ANTONIO HINOJOSA MD ([id number]) on 09/05/2018 12:22:22 PM Referred By: Clovis Ramirez Confirmed By:JOSE ANTONIO HINOJOSA MD
--- NOTE | 2018-09-07 12:17 | PATH ---
Surgical Pathology Report Patient Name: GIOVANNI MELISSA Med. Rec. #: [id number] /Age/Gender: 1960 (Age: 57) / M Account: [id number] Location: [facility] MED-SURG Taken: 09/04/2018 Received: 09/04/2018 Reported: 09/07/2018 Physicians: Flash Aguila M.D. Specimen(s) Received A: DUODENUM B: ANTRUM C: ESOPHAGUS Clinical History Epigastric pain Post-operative diagnosis: Duodenitis, mild gastritis Final Diagnosis A. DUODENUM, BIOPSY: MILD CHRONIC ACTIVE DUODENITIS. B. ANTRUM, BIOPSY: MILD CHRONIC GASTRITIS. IMMUNOSTAIN IS NEGATIVE FOR H. PYLORI ORGANISMS. C. ESOPHAGUS, BIOPSY: COLUMNAR (GASTRIC CARDIA-TYPE) MUCOSA SHOWING MILD CHRONIC INFLAMMATION. ESOPHAGEAL (SQUAMOUS) MUCOSA WITH NO SIGNIFICANT PATHOLOGIC FINDINGS. NEGATIVE FOR INTESTINAL METAPLASIA. Electronically Signed Nina Sen M.D. Gross Description A. Received in formalin, labeled "duodenum" is one piece of serrano tissue measuring 0.5 cm in greatest dimension. Entirely submitted in one cassette. B. Received in formalin, labeled "antrum" is one piece of serrano tissue measuring 0.6 cm in greatest dimension. Entirely submitted in one cassette. C. Received in formalin, labeled "esophagus" are three pieces of serrano tissue ranging from 0.1-0.2 cm in greatest dimension. Entirely submitted in one cassette. AE/09/06/2018 ebram/09/06/2018
== END 2018-09-05 10:00 | disposition home or self-care (01) ==
LOC: FER 07:28 → FM/S 10:37
PROVIDERS: ADMIT Internal Medicine; ATTEND Nurse Practitioner Acute Care
PROC: 0DB68ZX Excision of Stomach, Via Natural or Artificial Opening Endoscopic, Diagnostic (ICD-10-PCS; 2018-09-04)
PROC: 0DB58ZX Excision of Esophagus, Via Natural or Artificial Opening Endoscopic, Diagnostic (ICD-10-PCS; 2018-09-04)
PROC: 0DB98ZX Excision of Duodenum, Via Natural or Artificial Opening Endoscopic, Diagnostic (ICD-10-PCS; principal; 2018-09-04 11:30)
DX: K29.50 Unspecified chronic gastritis without bleeding (principal); K29.80 Duodenitis without bleeding; K20.9 Esophagitis, unspecified; R10.13 Epigastric pain; R07.89 Other chest pain; K29.70 Gastritis, unspecified, without bleeding; I10 Essential (primary) hypertension; J45.909 Unspecified asthma, uncomplicated; G47.33 Obstructive sleep apnea (adult) (pediatric)
CPT/HCPCS: 36415; 71046-TC-FY; 71275-TC; 74177-TC; 80053; 80061; 82550; 83036; 83605; 83690; 84443; 84484; 85025; 85610; 85651; 86140; 86850; 86900; 86901; 88305-TC; 88342-TC; 93005; 93306-TC; 94640; 94760; 99285-25; G0378; J7030

== ENCOUNTER 2020-08-28 18:14 | Observation (INO) | payer BC ==
[2020-08-28] MEDS ORDERED: dilTIAZem HCL 125 MG/25 ML - 25 ML VIAL ONE (18:20)
[2020-08-28] MEDS ORDERED: dilTIAZem HCL 30 MG TABLET ONE ×2 (18:25→18:54)
[2020-08-28] MEDS ORDERED: dilTIAZem HCL 30 MG TABLET PO ONE ×2 (18:29→18:53)
[2020-08-28] MEDS ORDERED: dilTIAZem HCL 50 MG/10 ML - 10 ML VIAL IVPUSH ONE ×2 (18:29→18:52)
[2020-08-28 18:51] LABS: BASO % 1.1 % (0-2.0); EOS % 5.8 % (0-4.5); HEMATOCRIT 47.5 % (35.4-49); HEMOGLOBIN 16.1 GM/dL (11.7-16.9); LYMPH % 30.9 % (8-40); MCH 29.8 pg (25.7-33.7); MCHC 33.8 g/dl (32.0-35.9); MEAN CELL VOLUME 88.1 fl (80-96); MEAN PLT VOLUME 10.2 fl (7.5-11.1); MONO % 6.7 % (3.8-10.2); NEUT % 55.5 % (42.8-82.8); PLATELET COUNT 241 K/MM3 (134-434); RBC 5.39 M/mm3 (4.00-5.60); RDW 13.1 % (11.9-15.9); WHITE BLOOD COUNT 11.9 K/mm3 (4.0-10.0)
[2020-08-28 18:57] LABS: INR 1.05 (0.83-1.09); PROTHROMBIN TIME (PATIENT) 12.7 SEC (9.7-13.0)
[2020-08-28 19:09] LABS: CHLORIDE 104 mmol/L (98-107); SODIUM 137 mmol/L (136-145)
[2020-08-28 19:10] LABS: ALBUMIN 4.5 g/dl (3.4-5.0); ANION GAP 7 MMOL/L (8-16); BLOOD UREA NITROGEN 20.2 mg/dL (7-18); CO2 26 mmol/L (21-32)
[2020-08-28 19:11] LABS: CALCIUM 9.6 mg/dL (8.5-10.1); GLUCOSE,RANDOM 84 mg/dL (74-106)
[2020-08-28 19:15] LABS: CREATININE 1.3 mg/dL (0.55-1.3); SGOT/AST 34 U/L (15-37); SGPT/ALT 61 U/L (13-61)
[2020-08-28 19:16] LABS: BILIRUBIN,TOTAL 0.8 mg/dL (0.2-1)
[2020-08-28 19:18] LABS: ALK PHOS 73 U/L (45-117)
[2020-08-28] MEDS ORDERED: dilTIAZem HCL 50 MG/10 ML - 10 ML VIAL IVPUSH PRN (19:32)
[2020-08-28 19:34] LABS: N-TERMINAL BNP 93.4 pg/ml (5-125)
[2020-08-28] MEDS ORDERED: ALBUTEROL SO4 2.5/IPRATROPIUM 0.5 INH SOL 3 ML VIAL.NEB. NEB PRN (19:34)
[2020-08-28 19:36] LABS: MAGNESIUM 2.1 mg/dL (1.8-2.4)
[2020-08-28] MEDS: APIXABAN 5 MG TABLET PO SCH (21:21)
[2020-08-28] MEDS ORDERED: FLUTICASONE PROP 0.05% 16 GM NASAL SPRAY NS ONE (22:11)
[2020-08-29] MEDS: dilTIAZem HCL 60 MG TABLET PO SCH ×2 (01:11→06:15)
[2020-08-29 01:56] VITALS: BMI 39.2
[2020-08-29] MEDS ORDERED: ACETAMINOPHEN 500 MG TABLET (FP) PO ONE (07:45)
[2020-08-29 07:49] LABS: BASO % 0.7 % (0-2.0); EOS % 5.7 % (0-4.5); HEMATOCRIT 44.5 % (35.4-49); HEMOGLOBIN 15.3 GM/dL (11.7-16.9); LYMPH % 23.2 % (8-40); MCH 30.2 pg (25.7-33.7); MCHC 34.4 g/dl (32.0-35.9); MEAN CELL VOLUME 87.6 fl (80-96); MEAN PLT VOLUME 10.1 fl (7.5-11.1); MONO % 6.7 % (3.8-10.2); NEUT % 63.7 % (42.8-82.8); PLATELET COUNT 199 K/MM3 (134-434); RBC 5.08 M/mm3 (4.00-5.60); RDW 13.3 % (11.9-15.9); WHITE BLOOD COUNT 8.4 K/mm3 (4.0-10.0)
[2020-08-29 08:19] LABS: ALBUMIN 3.9 g/dl (3.4-5.0)
[2020-08-29 08:20] LABS: CALCIUM 8.7 mg/dL (8.5-10.1)
[2020-08-29 08:22] LABS: CREATININE 1.1 mg/dL (0.55-1.3)
[2020-08-29 08:24] LABS: BILIRUBIN,TOTAL 1.1 mg/dL (0.2-1); PHOSPHOROUS 2.4 mg/dL (2.5-4.9)
[2020-08-29] MEDS ORDERED: ALBUTEROL SO4 0.083% IH SOL 2.5 MG/3 ML VIAL.NEB. NEB PRN (08:43)
[2020-08-29] MEDS ORDERED: PT OWN MED DRAWER 7, Y5N ONE (09:21)
[2020-08-29] MEDS: APIXABAN 5 MG TABLET PO SCH (09:45)
[2020-08-29 09:52] VITALS: BP 120/59; PULSE 78; TEMP 97.9
[2020-08-29] MEDS ORDERED: NYSTATIN 100,000 UNIT/GM TOPICAL CREAM 15 GM TUBE TP SCH (10:00)
[2020-08-29] MEDS ORDERED: FLUTICASONE/UMECLIDIN/VILANTER (TRELEGY ELLIPTA 100-62.5-25) INAHLER IH SCH (10:00)
[2020-08-29] MEDS ORDERED: ENOXAPARIN NA (PORCINE) 40 MG/0.4 ML DISP.SYRIN SQ SCH (10:00)
[2020-08-29] MEDS ORDERED: FLUTICASONE/UMECLIDIN/VILANTER (TRELEGY ELLIPTA 200-62.5-25) INAHLER IH SCH (10:00)
[2020-08-29] MEDS ORDERED: NAPH,MB-DB/K PH,MBDB POWDER PACKET PO ONE (11:45)
== END 2020-08-29 13:14 | disposition home or self-care (01) ==
LOC: JER 18:14 → JERBED 18:53 → UNDOADMOB 18:53 → INTOOBSV 18:53 → J4W 19:45 → JERBED 19:45 → J4W 08-29 10:00 → JERBED 08-29 10:00
PROVIDERS: ADMIT Internal Medicine; ATTEND Internal Medicine
PROC: 3E033GC Introduction of Other Therapeutic Substance into Peripheral Vein, Percutaneous Approach (ICD-10-PCS; principal; 2020-08-29)
DX: I48.91 Unspecified atrial fibrillation (principal); I10 Essential (primary) hypertension; J45.909 Unspecified asthma, uncomplicated; E66.9 Obesity, unspecified; G47.33 Obstructive sleep apnea (adult) (pediatric); Z68.39 Body mass index [BMI] 39.0-39.9, adult; Z99.89 Dependence on other enabling machines and devices; R06.02 Shortness of breath
CPT/HCPCS: 36415; 71045-TC-FY; 80053; 80061; 82550; 83036; 83721; 83735; 83880; 84100; 84443; 84484; 85025; 85610; 93005; 93010; 93306-TC; 94660; 96374; 96376; 99291; C9803; G0378; U0003; U0005

== ENCOUNTER 2024-01-31 21:19 | Emergency (ER) | payer BC ==
[2024-01-31 21:26] VITALS: BP 139/89; PULSE 84; RESP 17; TEMP 98; BMI 37.5
[2024-01-31] MEDS: HYDROCORTISONE 1% TOPICAL CREAM 30 GM TUBE TP ONE (21:50)
== END 2024-01-31 21:53 | disposition home or self-care (01) ==
LOC: JER 21:19
DX: L30.9 Dermatitis, unspecified (principal); R21 Rash and other nonspecific skin eruption
CPT/HCPCS: 99283-25